=== PATIENT | female | born 1940 | race Caucasian/White ===

== ENCOUNTER 2016-11-26 17:00 | Emergency (ER) | payer OTHER ==
[2016-11-26 17:05] VITALS: BP 130/68; PULSE 96; TEMP 97.9; BMI 20.8
[2016-11-26] MEDS ORDERED: ACETAMINOPHEN 325 MG TABLET (FP) PO ONE (17:35)
--- NOTE | 2016-11-26 17:37 | PDOC ---
History of Present Illness - General Chief Complaint: Cold Symptoms Stated Complaint: COLD SYMPTOMS Time Seen by Provider: 11/26/16 17:12 History Source: Patient - History of Present Illness Timing/Duration: reports: other Associated Symptoms: reports: fever/chills, muscle aches, sore throat. denies: cough, earache, facial pain, headache, lightheadedness, nasal congestion, nasal drainage, shortness of breath, wheezing Past History - Past Medical History Allergies/Adverse Reactions: Allergies Allergy/AdvReac Type Severity Reaction Status Date / Time No Known Allergies Allergy Verified 11/26/16 17:01 Home Medications: Ambulatory Orders Ranitidine HCl [Zantac] 150 mg PO BID #0 tablet 12/16/11 Aspirin 81 mg PO DAILY 05/10/13 Clopidogrel Bisulfate [Plavix -] 75 mg PO DAILY 05/10/13 Valsartan/Hydrochlorothiazide [Diovan Hct 320-25 mg Tablet] 1 combo PO DAILY 11/21 Labetalol HCl [Normodyne -] 100 mg PO BID #0 tablet 10/21/13 Eszopiclone [Lunesta] 3 mg PO HS 02/06/15 Ezetimibe/Simvastatin [Vytorin 10-10 mg Tablet] 5 mg PO DAILY 02/06/15 Insulin Lispro Protamin/Lispro [Humalog Mix 75-25 Kwikpen] 18 unit SQ DAILY 10/23 Insulin Lispro Protamin/Lispro [Humalog Mix 75-25 Kwikpen] 32 unit SQ AM Meclizine HCl [Antivert -] 25 mg PO BID 02/06/15 Anemia: No Asthma: No Cancer: No Cardiac Disorders: Yes ([place], CARDIAC STENT) CVA: No COPD: No CHF: No Dementia: No Diabetes: Yes GI Disorders: No Disorders: No HTN: Yes Hypercholesterolemia: Yes Liver Disease: No Suicide Attempt (Hx): No Seizures: No Thyroid Disease: No - Surgical History Cardiac Surgery: Yes (x 1 cardiac stent) - Immunization History Immunization Up to Date: Yes - Psycho/Social/Smoking Cessation Hx Anxiety: No Suicidal Ideation: No Smoking Status: Yes Smoking History: Current every day smoker Have you smoked in the past 12 months: Yes Number of Cigarettes Smoked Daily: 10 Information on smoking cessation initiated: Yes 'Breaking Loose' booklet given: 11/26/16 Hx Alcohol Use: No Drug/Substance Use Hx: No Substance Use Type: None Hx Substance Use Treatment: No Review of Systems - Review of Systems Constitutional: Yes: Fever, Malaise HEENTM: No: Ear Pain, Throat Pain Respiratory: No: Cough, Shortness of Breath Cardiac (ROS): No: Chest Pain ABD/GI: No: Diarrhea, Nausea, Vomiting : No: Dysuria *Physical Exam - Vital Signs Last Vital Signs Temp Pulse Resp BP Pulse Ox 97.9 F 96 H 18 130/68 100 11/26/16 17:01 11/26/16 17:01 11/26/16 17:01 11/26/16 17:01 11/26/16 17:01 - Physical Exam General Appearance: Yes: Appropriately Dressed. No: Apparent Distress HEENT: positive: EOMI, Normal ENT Inspection, Normal Voice. negative: Scleral Icterus (R), Scleral Icterus (L) Neck: positive: Supple. negative: Lymphadenopathy (R), Lymphadenopathy (L) Respiratory/Chest: positive: Lungs Clear, Normal Breath Sounds. negative: Respiratory Distress Cardiovascular: positive: Regular Rate, S1, S2 Gastrointestinal/Abdominal: positive: Soft. negative: Tender Integumentary: positive: Dry, Warm Neurologic: positive: Fully Oriented, Alert, Normal Mood/Affect Medical Decision Making - Medical Decision Making 11/26/16 17:35 76-year-old female history of diabetes and high blood pressure, here with malaise with body aches, sore throat and subjective fevers 3 days. Denies cough, shortness of breath, chest pain, nausea, vomiting or diarrhea. No sick contacts or recent travel. Patient taking Advil with some relief at home. Patient well-appearing and stable in ED with unremarkable exam. Most likely viral syndrome, rule out influenza, no e/o PNA. Pain control in ED 11/26/16 18:35 Influenza neg. Pt stable for discharge w/ supportive tx. 11/26/16 18:36 *DC/Admit/Observation/Transfer Diagnosis at time of Disposition: Viral syndrome - Discharge Dispostion Disposition: HOME Condition at time of disposition: Good - Patient Instructions Printed Discharge Instructions: DI for Viral Syndrome Additional Instructions: Maintain adequate hydration and take Tylenol as needed for pain and/or fever. Follow-up with your PMD as needed
[2016-11-26] MEDS ORDERED: ACETAMINOPHEN 325 MG TABLET (FP) ONE (17:38)
== END 2016-11-26 18:37 | disposition home or self-care (01) ==
LOC: JERFT 17:00
DX: B34.9 Viral infection, unspecified (principal); I25.10 Atherosclerotic heart disease of native coronary artery without angina pectoris; I10 Essential (primary) hypertension; F17.210 Nicotine dependence, cigarettes, uncomplicated; Z95.5 Presence of coronary angioplasty implant and graft; E11.9 Type 2 diabetes mellitus without complications; Z79.4 Long term (current) use of insulin; E78.00 Pure hypercholesterolemia, unspecified
CPT/HCPCS: 87804; 99281-25